=== PATIENT | female | born 1960 | race Caucasian/White ===

== ENCOUNTER 2020-02-14 17:05 | Outpatient (CLI) | payer OTHER, SELFPAY ==
--- NOTE | ~2020-02-14 | MM_ITS ---
EXAMINATION: MM screening [place] BI w [facility] HISTORY: Screening mammogram TECHNIQUE: Craniocaudal and mediolateral oblique 3-D tomosynthesis images were obtained and synthetic 2-D images were generated. CAD analysis was submitted and interpreted. COMPARISON: 02/26/2015, 01/28/2015, 01/23/2014 BREAST PARENCHYMAL COMPOSITION: The breasts are heterogeneously dense, which may obscure small masses . FINDINGS: RIGHT BREAST: Focal asymmetry is present in the posterior third of the slightly lower, slightly inner breast. LEFT BREAST: There is no evidence of suspicious mass, calcification, or architectural distortion to s uggest malignancy. There has been no significant interval change. IMPRESSION: 1. Focal asymmetry of the right breast. 2. Additional mammographic views and possible breast ultrasound are recommended. BI-RADS Category 0: Incomplete: Needs additional imaging evaluation. Reviewed, dictated and finalized at location A. IMPRESSION: 1. Focal asymmetry of the right breast. 2. Additional mammographic views and possible breast ultrasound are recommended . BI-RADS Category 0: Incomplete: Needs additional imaging evaluation.
== END 2020-02-14 17:06 | disposition home or self-care (01) ==
LOC: ANHIMG 17:07
PROVIDERS: PCP Family Medicine; Visit Provider Physician Assistant Medical
DX: Z12.31 Encounter for screening mammogram for malignant neoplasm of breast (principal); R92.8 Other abnormal and inconclusive findings on diagnostic imaging of breast
CPT/HCPCS: 77063; 77067

== ENCOUNTER 2020-03-11 11:53 | Outpatient (CLI) | payer OTHER, SELFPAY ==
--- NOTE | ~2020-03-11 | MM_ITS ---
EXAMINATION: MM diagnostic mammo unilat RT HISTORY: Focal asymmetry of the right breast on screening mammogram TECHNIQUE: Additional 3-D tomosynthesis images of the right breast were performed and synthetic 2-D i mages were generated. CAD analysis was submitted and interpreted. COMPARISON: 02/14/2020, 01/25/2019,01/28/2015, 01/23/2014 FINDINGS: No persistent focal asymmetry is identified with spot compression views of the breast. Ther e is no suspicious mass, calcification, or architectural distortion. IMPRESSION: 1. No mammographic evidence of malignancy. 2. Recommend routine screening mammography in one year. BI-RADS Category 1: Negative Reviewed, dictated and finalized at location A.
== END 2020-03-11 11:54 | disposition home or self-care (01) ==
PROVIDERS: PCP Family Medicine; Visit Provider Physician Assistant Medical
DX: R92.8 Other abnormal and inconclusive findings on diagnostic imaging of breast (principal)
CPT/HCPCS: 77065

== ENCOUNTER 2021-04-03 00:33 | Day surgery (SDC) | payer OTHER, SELFPAY ==
[2021-03-18 14:06] VITALS: BMI 22.4
[2021-04-03 07:46] VITALS: BP 129/70; PULSE 69; RESP 18; TEMP 36.8; O2SAT 100; BMI 22.1
--- NOTE | 2021-04-03 07:55 | WPDGICN ---
Assessment and Plan Assessment and plan (1) Encounter for screening colonoscopy: Code(s): Z12.11 - Encounter for screening for malignant neoplasm of colon Status: Acute Assessment and Plan: Patient presents for screening colonoscopy. Her last exam was 10 years ago. Family history is significant her father had colon polyps and an uncle had colon cancer. Further recommendations will be given after endoscopy. GI Consult Note Consult date/time: 04/03/21 07:55 HPI: Daly Farley is a 60 year old female Presents for screening colonoscopy. Patient's current weight appetite bowel movements are normal. She denies abdominal pain. She has had no bleeding. Her last colonoscopy 2010 was unremarkable. Patient's family history is significant an uncle had colon cancer and her father had colon polyps. Patient herself denies any change in bowel habits recently. Review of Systems Review of Systems: All systems reviewed & are unremarkable except as noted in HPI and below PMFSH Past Medical History Medical History Osteopenia Seborrheic keratoses, inflamed Surgical History Surgical History S/P appendectomy (~1981) S/P endometrial ablation (~2012) S/P tubal ligation (~1989) Family History Family History Father Family history of mental disorder Depression Mother Family history of glaucoma Hypertension Family history of elevated blood lipids Family history of cardiovascular disease Patient's mother is Family history of malignant neoplasm Sibling Family history of malignant neoplasm Hypertension Family history of elevated blood lipids Other Diabetes mellitus Family history of hypercholesterolemia Social History Social History Smoking status: Never smoker Second hand tobacco smoke exposure: No Alcohol intake: current Substance use type: does not use Living arrangements: with family Meds Home Medications and Allergies Home Medications Medication Instructions Recorded Confirmed Type multivitamin 1 tablet PO DAILY 04/11/19 04/03/21 History alprazolam 0.25 mg tablet 0.25 mg PO TID PRN #30 tablet 01/14/21 04/03/21 Rx Allergies Allergy/AdvReac Type Severity Reaction Status Date / Time duloxetine Allergy Unknown Nausea Verified 03/18/21 14:03 risedronate sodium Allergy Unknown Nausea Verified 03/18/21 14:03 Sulfa (Sulfonamide Allergy Unknown not known Verified 03/18/21 14:03 Antibiotics) Vital Signs Vital Signs - 24 hr 04/03/21 07:46 Temperature 98.2 F Pulse Rate 69 Respiratory Rate 18 Blood Pressure 129/70 Pulse Oximetry 100 Exam Narrative: Physical exam reveals patient to be alert. Vital signs stable. HEENT exam is unremarkable. Patient is anicteric. Lungs are clear to auscultation and percussion. Heart is without murmur or extra sounds. Abdominal exam bowel sounds are present soft nontender with no organomegaly. Digital external rectal exam is normal.
--- NOTE | 2021-04-03 08:01 | WPDANESEPPF ---
Anes - Initial Pre Proc Eval Procedure: Operation Date: 04/03/21 08:30 Proposed Procedures p Screening Colonoscopy - Zane Martins MD Date/Time: 04/03/21 08:01 Surgeon: Zane Martins MD Pre Op Diagnosis: neoplasm screening Patient Data Age: 60 Gender: F Height: 1.7 m Weight: 64 kg Last Vital Signs Temp 98.2 F 04/03/21 07:46 Pulse 69 04/03/21 07:46 Resp 18 04/03/21 07:46 BP 129/70 04/03/21 07:46 Pulse Ox 100 04/03/21 07:46 Allergies Allergy/AdvReac Type Severity Reaction Status Date / Time duloxetine Allergy Unknown Nausea Verified 03/18/21 14:03 risedronate sodium Allergy Unknown Nausea Verified 03/18/21 14:03 Sulfa (Sulfonamide Allergy Unknown not known Verified 03/18/21 14:03 Antibiotics) Home Medications Medication Instructions Recorded Confirmed Type multivitamin 1 tablet PO DAILY 04/11/19 04/03/21 History alprazolam 0.25 mg tablet 0.25 mg PO TID PRN #30 tablet 01/14/21 04/03/21 Rx Patient hx anesthesia problems: none Family hx anesthesia problems: none Results Review: All pre-operative results and documents have been reviewed as part of the pre-operative evaluation. [facility] Past Medical History Medical History Osteopenia Seborrheic keratoses, inflamed Surgical History Surgical History S/P appendectomy (~1981) S/P endometrial ablation (~2012) S/P tubal ligation (~1989) Family History Family History Father Family history of mental disorder Depression Mother Family history of glaucoma Hypertension Family history of elevated blood lipids Family history of cardiovascular disease Patient's mother is Family history of malignant neoplasm Sibling Family history of malignant neoplasm Hypertension Family history of elevated blood lipids Other Diabetes mellitus Family history of hypercholesterolemia Social History Social History Smoking status: Never smoker Second hand tobacco smoke exposure: No Alcohol intake: current Substance use type: does not use Living arrangements: with family Sam Arciniega Final PreProcedure Day of Procedure 04/03/21 08:01 Patient weight: normal Heart: regular rate and rhythm Lungs: clear to auscultation Airway: Mallampati scale class II Neurological: alert and oriented Last oral intake: >/= 8 hours ASA classification: II Emergent: no Anesthetic plan: proceed Anesthesia type and monitoring: general GIVS and standard monitoring Results Review: All pre-operative results and documents have been reviewed as part of the pre-operative evaluation. Informed Consent: The patient's anesthetic plan and its attendant risks and benefits were discussed with the patient/family/POA. Questions were solicited and answers provided to the satisfaction of the patient/family/POA.
[2021-04-03] MEDS: LACTATED RINGERS 1,000 ML 150 ML IV CONT (08:04)
[2021-04-03 08:48] VITALS: BP 116/65; PULSE 79; RESP 22; O2SAT 100
[2021-04-03 08:58] VITALS: BP 121/70; PULSE 75; RESP 16; O2SAT 100
[2021-04-03 09:08] VITALS: BP 132/83; PULSE 67; RESP 16; O2SAT 100
== END 2021-04-03 09:18 | disposition home or self-care (01) ==
PROVIDERS: PCP Family Medicine; Visit Provider Internal Medicine Gastroenterology
PROC: 0DJD8ZZ Inspection of Lower Intestinal Tract, Via Natural or Artificial Opening Endoscopic (ICD-10-PCS; CPT 45378; principal; 2021-04-03 08:30)
DX: Z12.11 Encounter for screening for malignant neoplasm of colon (principal); Z83.71 Family history of colonic polyps; K64.8 Other hemorrhoids; K57.30 Diverticulosis of large intestine without perforation or abscess without bleeding; M19.90 Unspecified osteoarthritis, unspecified site; L82.1 Other seborrheic keratosis
CPT/HCPCS: 45378; J2704; J7120

== ENCOUNTER 2023-02-10 12:57 | Outpatient (CLI) | payer OTHER, SELFPAY | END 2023-02-10 12:58 | disposition home or self-care (01) | PROVIDERS: PCP Family Medicine; Visit Provider Urology | DX: N36.42 Intrinsic sphincter deficiency (ISD) (principal) | CPT/HCPCS: 87086 ==

== ENCOUNTER 2023-02-18 00:30 | Day surgery (SDC) | payer OTHER, SELFPAY ==
[2023-02-08 11:45] VITALS: BMI 22.5
--- NOTE | 2023-02-08 11:51 | PC.NURSE ---
Report to the Outpatient Waiting Room, entrance under the green pavilion located off [facility], at time 9:00 on date 02/18/23. Planned Procedure Time: 11:00. Time changes happen often and if your time is changed the preop area will call you the afternoon before. - You and your visitor will be asked to self-screen and do not enter if you have any COVID symptoms. - A mask is optional within the hospital at this time. Patients may have clear liquids (water, carbonated beverages, clear teas, apple juice) until 3 hours prior to surgery (8:00) with a maximum of 20 ounces. - No food from midnight until time of surgery Take the following medications with a SIP of water the morning of surgery: INHALER, ALPRAZOLAM, VALACYCLOVIR IF NEEDED DO NOT STOP ANY OF YOUR OTHER PRESCRIPTION MEDICATIONS PRIOR TO SURGERY ?EXCEPT THE FOLLOWING Medications to discontinue per physician: VITAMINS/SUPPLEMENTS Date to take last dose: 02/14/23 Please no make-up, nail swedish, hairspray, perfume, deodorant, or body powder the day of surgery. No jewelry (including any body piercings) or valuables the day of surgery, leave them at home. Please take a shower or bath the night before, or the morning of, surgery with an antibacterial soap. Wear comfortable, loose fitting clothing. - Jewelry must be removed prior to entering the operating room. Rings and piercings that are not removed may be cut off. - The hospital will not accept responsibility for valuables. - Please leave all valuables, including medications, at home the day of surgery. If you are going home after surgery, a licensed coach driver must drive you home. - NO public transportation without another adult if you receive anesthesia. - We recommend that an adult stay with you for 24 hours following discharge. - We also recommend that you do not drive, make important decision, drink alcoholic beverages, or take any drugs that were not prescribed by your health care provider for at least 24 hours after your discharge time. Follow any additional instructions given to you from your surgeon. If you or anyone in your household have experienced Covid symptoms in the past week, please notify your surgeon or the nurse liaison at the phone number below for possible testing. Telephone instructions given to PT - THOM MORENO and asked if any additional questions and then verbalized understanding. Patient advised to call surgeon office or pre surgery nurse liaison [phone] if any additional questions.
--- NOTE | 2023-02-17 04:56 | PM.IMHP ---
H&P: HPI History of Present Illness Date/Time: 02/17/23 04:56 Chief Complaint: stress incontinence Narrative: stress urinary incontinence. She desires a surgical procedure Review of Systems Review of Systems: All systems reviewed & are unremarkable except as noted in HPI and below PMFSH Past Medical History Medical History Ocular migraine Osteopenia Seborrheic keratoses, inflamed Tension headache Surgical History Surgical History S/P appendectomy (~1981) S/P endometrial ablation (~2012) S/P tubal ligation (~1989) Family History Family History Father Family history of mental disorder Depression Mother Family history of glaucoma Hypertension Family history of elevated blood lipids Family history of cardiovascular disease Patient's mother is Family history of malignant neoplasm Sibling Family history of malignant neoplasm Hypertension Family history of elevated blood lipids Other Diabetes mellitus Family history of hypercholesterolemia Social History Social History Smoking status: Never smoker Second hand tobacco smoke exposure: No Alcohol intake: current Drinks per week: 1 Substance use: never Substance use type: does not use Living arrangements: with family Spiritual care concerns: No Meds Home Medications and Allergies Home Medications Medication Instructions Recorded Confirmed Type multivitamin 1 tablet PO DAILY 04/11/19 02/11/23 History cholecalciferol (vitamin D3) 125 125 mcg PO DAILY 02/08/23 02/11/23 History mcg (5,000 unit) tablet (Vitamin D3) lysine 1,000 mg tablet 1,000 mg PO DAILY 02/08/23 02/11/23 History albuterol sulfate 90 mcg/actuation 2 inh inhalation Q4H PRN shortness 02/11/23 02/11/23 Rx aerosol inhaler of breath or wheezing #8.5 grams alprazolam 0.25 mg tablet (Xanax) 0.25 mg PO TID PRN anxiety #30 tabs 02/11/23 02/11/23 Rx valacyclovir 1 gram tablet 2,000 mg PO Q12H #32 tabs 02/11/23 02/11/23 Rx (Valtrex) Allergies Allergy/AdvReac Type Severity Reaction Status Date / Time amitriptyline Allergy Mild vision Verified 02/11/23 15:14 duloxetine Allergy Unknown Nausea Verified 02/11/23 15:14 risedronate sodium Allergy Unknown Nausea Verified 02/11/23 15:14 Sulfa (Sulfonamide Allergy Unknown not known Verified 02/11/23 15:14 Antibiotics) Exam Narrative: no acute distress alert oriented x3 no significant pelvic organ prolapse Assessment and Plan Assessment and plan (1) Intrinsic sphincter deficiency (ISD): Code(s): N36.42 - Intrinsic sphincter deficiency (ISD) Status: Acute Assessment and Plan: I offered both sling and bulking agent. She prefers less invasive bulking agent. She understands the risks of bleeding, infection, damage surrounding organs, damage to the urinary tract, recurrent or persistent incontinence, need for catheterization. Need for repeat procedures. She agrees to proceed
[2023-02-18 07:17] VITALS: BP 138/70; PULSE 69; RESP 20; TEMP 36.5; O2SAT 100
--- NOTE | 2023-02-18 07:18 | WPDHPUPDATE1 ---
History and Physical Update Update Date/Time: 02/18/23 07:18 History and Physical has been reviewed, including an updated exam of the patient. There are NO changes in the patient's condition. Risks, benefits, and alternatives have been discussed and questions answered. Patient agrees to proceed with procedure.
[2023-02-18] MEDS: LACTATED RINGERS 1,000 ML 30 ML IV CONT (08:00)
--- NOTE | 2023-02-18 08:40 | WPDANESEPPF ---
Anes - Initial Pre Proc Eval Procedure: Operation Date: 02/18/23 09:00 Proposed Procedures p Cystoscopy, Bulking Agent - Gerry Hernandez MD Date/Time: 02/18/23 08:40 Surgeon: Gerry Hernandez MD Pre Op Diagnosis: intrinsic sphincter deficiency Patient Data Age: 62 Gender: F Height: 1.73 m Weight: 66.1 kg Last Vital Signs Temp 97.7 F 02/18/23 07:17 Pulse 69 02/18/23 07:17 Resp 20 02/18/23 07:17 BP 138/70 02/18/23 07:17 Pulse Ox 100 02/18/23 07:17 O2 Del Method Room Air 02/18/23 07:17 Allergies Allergy/AdvReac Type Severity Reaction Status Date / Time Sulfa (Sulfonamide Allergy Unknown Hives Verified 02/18/23 07:48 Antibiotics) amitriptyline AdvReac Mild Blurry Verified 02/18/23 07:48 Vision duloxetine AdvReac Unknown Nausea Verified 02/18/23 07:48 risedronate sodium AdvReac Unknown Nausea Verified 02/18/23 07:48 Home Medications Medication Instructions Recorded Confirmed Type multivitamin 1 tablet PO DAILY 04/11/19 02/18/23 History cholecalciferol (vitamin D3) 125 125 mcg PO DAILY 02/08/23 02/18/23 History mcg (5,000 unit) tablet (Vitamin D3) lysine 1,000 mg tablet 1,000 mg PO DAILY 02/08/23 02/18/23 History albuterol sulfate 90 mcg/actuation 2 inh inhalation Q4H PRN shortness 02/11/23 02/18/23 Rx aerosol inhaler of breath or wheezing #8.5 grams alprazolam 0.25 mg tablet (Xanax) 0.25 mg PO TID PRN anxiety #30 tabs 02/11/23 02/18/23 Rx valacyclovir 1 gram tablet 2,000 mg PO Q12H #32 tabs 02/11/23 02/18/23 Rx (Valtrex) calcium 1 tablet PO DAILY 02/18/23 02/18/23 History carbonate,citrate-magnesium oxide 200 mg calcium-50 mg tablet (CalMag Thins) norethindrone acetate 1 mg-ethinyl 1 tablet PO DAILY 02/18/23 02/18/23 History estradiol 5 mcg tablet omega-3 fatty acids 1,000 mg PO DAILY 02/18/23 02/18/23 History Patient hx anesthesia problems: none Family hx anesthesia problems: none Results Review: All pre-operative results and documents have been reviewed as part of the pre-operative evaluation. [facility] Past Medical History Medical History Ocular migraine Osteopenia Seborrheic keratoses, inflamed Tension headache Surgical History Surgical History S/P appendectomy (~1981) S/P endometrial ablation (~2012) S/P tubal ligation (~1989) Family History Family History Father Family history of mental disorder Depression Mother Family history of glaucoma Hypertension Family history of elevated blood lipids Family history of cardiovascular disease Patient's mother is Family history of malignant neoplasm Sibling Family history of malignant neoplasm Hypertension Family history of elevated blood lipids Other Diabetes mellitus Family history of hypercholesterolemia Social History Social History Smoking status: Never smoker Second hand tobacco smoke exposure: No Alcohol intake: current Drinks per week: 1 Substance use: never Substance use type: does not use Living arrangements: with family Spiritual care concerns: No Anes - Eval Final PreProcedure Day of Procedure 02/18/23 08:40 Patient weight: normal Heart: regular rate and rhythm Lungs: clear to auscultation Airway: Mallampati scale class II Neurological: alert and oriented Last oral intake: >/= 8 hours ASA classification: II Emergent: no Anesthetic plan: proceed Anesthesia type and monitoring: general GIVS and standard monitoring Results Review: All pre-operative results and documents have been reviewed as part of the pre-operative evaluation. Informed Consent: The patient's anesthetic plan and its attendant risks and benefits were discussed with the patient/family/POA. Questions were solicited and answer
[2023-02-18] MEDS: ceFAZolin 2 GM/D5W 50 ML 2 GM/50 ML BAG IVPB (09:07)
[2023-02-18 09:27] VITALS: BP 127/74; PULSE 70; RESP 12; O2SAT 100
--- NOTE | 2023-02-18 09:31 | P.OP_ITS ---
Procedure Note - Detailed Date of Procedure 02/18/23 Pre-op Diagnosis intrinsic sphincter deficiency Post-op Diagnosis Same Procedure Performed Cystoscopy suburethral injection of implant material Surgeon Gerry Hernandez MD Client [employer] Analyst None Anesthesia MAC Indications This is a was stress incontinence. We discussed treatment options including observation, physical therapy, sling, bulking agent. She has opted for a bulking agent. She understands it is lower efficacy as compared to a sling and its need for repeat procedures. We also discussed the risks of urinary tension requiring catheterization. She agrees to proceed Description of Procedure She has correctly identified. Informed consent obtained. She from the operating room. She was given MAC anesthesia. She was placed in dorsal lithotomy position. She was prepped and draped in a sterile fashion. Time-out performed. Cystoscopy revealed a normal appearing bladder without abnormalities. Ureteral orifices were normal. I chose a site 2 cm distal the bladder neck. I injecting bulking agent circumferentially. I performed several pillows which coapted the urethra. Her bladder had no leakage on Crede a maneuver. There was excellent hemostasis. I left the bladder partially full. She was awakened transferred to PACU in stable condition. Estimated Blood Loss 0 Drains No Packing No Pathology None sent Complications No immediate complications Condition Stable Disposition PACU
[2023-02-18 09:40] VITALS: BP 126/82; PULSE 71; RESP 14; O2SAT 99
[2023-02-18] MEDS: ONDANSETRON INJ 4 MG/2 ML VIAL IV PUSH (09:46)
[2023-02-18 10:05] VITALS: BP 144/70; PULSE 62; RESP 16; O2SAT 100
[2023-02-18 10:20] VITALS: BP 145/76; PULSE 64; RESP 16; O2SAT 100
[2023-02-18 10:30] VITALS: BP 146/78; PULSE 64; RESP 16
== END 2023-02-18 10:52 | disposition home or self-care (01) ==
PROVIDERS: PCP Family Medicine; Visit Provider Urology
PROC: 3E0K8GC Introduction of Other Therapeutic Substance into Genitourinary Tract, Via Natural or Artificial Opening Endoscopic (ICD-10-PCS; CPT 51715; principal; 2023-02-18 09:00)
DX: N36.42 Intrinsic sphincter deficiency (ISD) (principal); Z79.51 Long term (current) use of inhaled steroids
CPT/HCPCS: 51715; J0690; J2250; J2405; J2704; J3010; J7120; L8606

== ENCOUNTER 2023-03-18 09:17 | Outpatient (CLI) | payer OTHER, SELFPAY ==
--- NOTE | ~2023-03-18 | MMUS_ITS ---
EXAMINATION: MM diagnostic [place] RT w [place], US breast RT limited HISTORY: Possible right breast mass TECHNIQUE: Additional 3-D tomosynthesis images of the right breast were performed and synthetic 2-D i mages were generated. CAD analysis was submitted and interpreted. High resolution limited right breas t ultrasound was performed. COMPARISON: 02/02/2023, 02/10/2022, 02/20/2020, 02/14/2020 BREAST PARENCHYMAL COMPOSITION: The breasts are heterogeneously dense, which may obscure small masses . FINDINGS: MAMMOGRAPHIC FINDINGS: There is an 8 mm, obscured, low density mass in the posterior third of the outer breast at the 9:00 l ocation, 4 cm from the nipple. No suspicious calcification or architectural distortion are identified . ULTRASOUND: There is a 10 mm x 5 mm cyst at the 9:00 location 1 cm from the nipple. There is a 5 mm round cyst at the 10:00 location, 3 cm from the nipple. IMPRESSION: 1. No mammographic or sonographic evidence of malignancy. 2. Recommend routine screening mammography in one year. BI-RADS Category 2: Benign finding(s). Reviewed, dictated and finalized at location A. IMPRESSION: 1. No mammographic or sonographic evidence of malignancy. 2. Recommend routine screening mammography in one year. BI-RADS Category 2: Benign finding(s).
== END 2023-03-18 09:18 | disposition home or self-care (01) ==
PROVIDERS: PCP Family Medicine; Visit Provider Obstetrics & Gynecology
DX: R92.8 Other abnormal and inconclusive findings on diagnostic imaging of breast (principal)
CPT/HCPCS: 76642; 77061; 77065; G0279

== ENCOUNTER 2023-05-13 08:28 | Outpatient (CLI) | payer OTHER, SELFPAY ==
--- NOTE | ~2023-05-13 | CT_ITS ---
EXAMINATION: CT abdomen pelvis wo/w con DATE: 05/13/2023 09:32 INDICATION: Intrinsic sphincter deficiency, hematuria TECHNIQUE: Computed tomography (CT) of the abdomen and pelvis was performed without intravenous contr ast. CT of the abdomen and pelvis was then performed with a total of 130 mL Omnipaque 350 intravenous contrast using a double-bolus technique for simultaneous opacification of the renal parenchyma and r enal collecting system. The dose-length product (DLP) was 675.99 mGy-cm. Automated exposure control a nd iterative reconstruction technique were employed. COMPARISON: 11/07/2014 FINDINGS: Minimal dependent atelectasis is present in the lung bases. The heart size is normal. There is a 3 mm cyst of the right hepatic lobe. Punctate calcifications in an otherwise normal spleen like ly represent healed granulomatous disease. No suspicious renal or urothelial lesion identified. The k idneys are unremarkable. No hydronephrosis or hydroureter. No pathologically enlarged abdominal or pe lvic lymph nodes are identified. No free intraperitoneal gas or evidence of bowel obstruction. There is severe lumbar spondylosis at L5-S1. IMPRESSION: 1. No CT correlate for the patient's symptoms. Reviewed, dictated and finalized at location B. [employer] SUPPORT CONSULTANT
[2023-05-13 09:12] LABS: Estimated Glomerular Filt Rate > 60
== END 2023-05-13 08:29 | disposition home or self-care (01) ==
LOC: ANHIMG 08:29
PROVIDERS: PCP Family Medicine; Visit Provider Physician Assistant
DX: N36.42 Intrinsic sphincter deficiency (ISD) (principal)
CPT/HCPCS: 74178; Q9967

== ENCOUNTER 2023-10-16 08:59 | Emergency (ER) | payer OTHER, SELFPAY ==
[2023-10-16 09:26] VITALS: BP 127/90; PULSE 67; RESP 16; TEMP 37.1; O2SAT 100
--- NOTE | 2023-10-16 09:32 | ED.GENADULT ---
HPI - General Adult General Chief complaint: Upper Respiratory Infection Stated complaint: SINUS CONGESTION Time Seen by Provider: 10/16/23 09:33 Source: patient Mode of arrival: ambulatory Limitations: no limitations History of Present Illness HPI narrative: 63-year-old female patient presents to the [facility] with complaints of sinus congestion and cough for the past 11 days. Patient states it started off with fevers, body aches chills and cold symptoms but most of her symptoms have subsided and improved except for she continues to have some postnasal drip, congestion and a cough. Patient states her cough is worse at night. Denies any fevers body aches or chills currently. Patient states she has been taking [id number] Xyzal, Mucinex, Tylenol for her symptoms. Patient states she does have an albuterol inhaler at home but has not tried that at this time. Related Data Home Medications Medication Instructions Recorded Confirmed multivitamin 1 tablet PO DAILY 04/11/19 02/18/23 cholecalciferol (vitamin D3) 125 125 mcg PO DAILY 02/08/23 02/18/23 mcg (5,000 unit) tablet (Vitamin D3) lysine 1,000 mg tablet 1,000 mg PO DAILY 02/08/23 02/18/23 calcium 1 tablet PO DAILY 02/18/23 02/18/23 carbonate,citrate-magnesium oxide 200 mg calcium-50 mg tablet (CalMag Thins) norethindrone acetate 1 mg-ethinyl 1 tablet PO DAILY 02/18/23 02/18/23 estradiol 5 mcg tablet omega-3 fatty acids 1,000 mg PO DAILY 02/18/23 02/18/23 quercetin 500 mg capsule mg PO 05/12/23 Allergies Allergy/AdvReac Type Severity Reaction Status Date / Time Sulfa (Sulfonamide Allergy Unknown Hives Verified 10/16/23 09:22 Antibiotics) amitriptyline AdvReac Mild Blurry Verified 10/16/23 09:22 Vision duloxetine AdvReac Unknown Nausea Verified 10/16/23 09:22 risedronate sodium AdvReac Unknown Nausea Verified 10/16/23 09:22 Review of Systems Review of Systems: CONSTITUTIONAL: Denies fever, chills, or sweats. EYES: Denies visual changes, redness, or discharge. ENT: Positive rhinorrhea, congestion, denies sore throat, or otalgia. CARDIOVASCULAR: Denies chest pain, palpitations, or edema. RESPIRATORY: positive productive cough , denies dyspnea. GASTROINTESTINAL: Denies abdominal pain, nausea, vomiting, or diarrhea. GENITOURINARY: Denies dysuria or hematuria. SKIN: Denies rash or itching. MUSCULOSKELETAL: Denies back pain, joint pain, or myalgia. NEUROLOGIC: Denies headache, numbness, or weakness. PSYCHIATRIC: Denies anxiety or depression. [facility] Past Medical History Medical History Abdominal adhesions Ocular migraine Osteopenia Seborrheic keratoses, inflamed Tension headache Surgical History Surgical History History of injection of urethral bulking agent S/P appendectomy (~1981) S/P endometrial ablation (~2012) S/P tubal ligation (~1989) Family History Family History Father Family history of mental disorder Depression Mother Family history of glaucoma Hypertension Family history of elevated blood lipids Family history of cardiovascular disease Patient's mother is Family history of malignant neoplasm Sibling Family history of malignant neoplasm Hypertension Family history of elevated blood lipids Other Diabetes mellitus Family history of hypercholesterolemia Social History Social History Smoking status: Never smoker Second hand tobacco smoke exposure: No Alcohol intake: current Drinks per week: 1 Substance use: never Substance use type: does not use Living arrangements: with family Spiritual care concerns: No Comments At the time of my signature I agree with nursing past medical history, surgical, social, and family history. There is no relevant family h
== END 2023-10-16 09:46 | disposition home or self-care (01) ==
PROVIDERS: Emergency Provider Nurse Practitioner Family; PCP Family Medicine
DX: J32.9 Chronic sinusitis, unspecified (principal); J06.9 Acute upper respiratory infection, unspecified; R05.9 Cough, unspecified; M85.80 Other specified disorders of bone density and structure, unspecified site
CPT/HCPCS: 99213; G0463

== ENCOUNTER 2024-02-18 07:27 | Outpatient (CLI) | payer OTHER, SELFPAY ==
--- NOTE | ~2024-02-18 | MM_ITS ---
EXAMINATION: MM screening [place] [facility] HISTORY: Screening. Exogenous hormone replacement. Remote family history of breast cancer. TECHNIQUE: Craniocaudal and mediolateral oblique 3-D tomosynthesis images were obtained and synthetic 2-D images were generated. CAD analysis was submitted and interpreted. COMPARISON: Examination is compared with multiple prior studies, performed most recently on 03/18/2023 and dating back to 01/24/2013. Reference is also made with prior breast ultrasound dated 03/18/2023 and dating back to 02/16/2013 BREAST PARENCHYMAL COMPOSITION: The breasts are heterogeneously dense, which may obscure small masses . FINDINGS: Punctate calcifications are detected bilaterally, stable and benign in appearance. Stable parenchymal pattern, without suspicious microcalcifications, architectural distortion, discret e masses or significant asymmetry. Multiple simple cysts accounting for the subtle nodular appearance on mammography as demonstrated by prior ultrasound examinations. IMPRESSION: 1. No mammographic evidence of malignancy. 2. Recommend routine screening mammography in one year. BI-RADS Category 2: Benign finding(s). Reviewed, dictated and finalized at location A.
== END 2024-02-18 07:28 | disposition home or self-care (01) ==
LOC: ANHIMG 07:29
PROVIDERS: PCP Family Medicine; Visit Provider Obstetrics & Gynecology
DX: Z12.31 Encounter for screening mammogram for malignant neoplasm of breast (principal)
CPT/HCPCS: 77063; 77067

== ENCOUNTER 2024-06-24 08:25 | Emergency (ER) | payer OTHER, SELFPAY ==
[2024-06-24 09:02] VITALS: BP 119/77; PULSE 66; RESP 16; TEMP 36.4; O2SAT 100
--- NOTE | 2024-06-24 09:19 | ED.GENADULT ---
HPI - General Adult General Chief complaint: Upper Respiratory Infection Stated complaint: COUGH/CONGESTION/CHEST/WEAKNESS/TIRED Time Seen by Provider: 06/24/24 09:19 Source: patient Mode of arrival: ambulatory Limitations: no limitations History of Present Illness HPI narrative: 63-year-old female patient presents to the [facility] accompanied by her with complaints of flu-like symptoms for the past 5 days. Patient states she has had a cough and high fevers. Patient states fevers are getting better and last time she room brain fever was yesterday and it was 100.4. Patient states she continues to have a cough and concerns that it is turning into bronchitis. Related Data Home Medications ?Medication ?Instructions ?Recorded ?Confirmed ?Last Taken ?Type multivitamin 1 tablet PO DAILY 04/11/19 02/16/24 02/14/23 History cholecalciferol (vitamin D3) 125 125 mcg PO DAILY 02/08/23 02/16/24 02/14/23 History mcg (5,000 unit) tablet (Vitamin D3) lysine 1,000 mg tablet 1,000 mg PO DAILY 02/08/23 02/16/24 02/14/23 History calcium 200 mg (carbonate, 1 tablet PO DAILY 02/18/23 02/16/24 02/14/23 History citrate)-magnesium 50 mg (as oxide) tablet (CalMag Thins) norethindrone acetate 1 mg-ethinyl 1 tablet PO DAILY 02/18/23 02/16/24 02/14/23 History estradiol 5 mcg tablet omega-3 fatty acids 1,000 mg PO DAILY 02/18/23 02/16/24 02/14/23 History quercetin 500 mg capsule 500 mg PO DAILY 05/12/23 02/16/24 Unknown History Allergies Allergy/AdvReac Type Severity Reaction Status Date / Time Sulfa (Sulfonamide Allergy Unknown Hives Verified 02/16/24 14:53 Antibiotics) amitriptyline AdvReac Mild Blurry Verified 02/16/24 14:53 Vision duloxetine AdvReac Unknown Nausea Verified 02/16/24 14:53 risedronate sodium AdvReac Unknown Nausea Verified 02/16/24 14:53 Review of Systems Review of Systems: CONSTITUTIONAL: Positive fever, chills, denies sweats. EYES: Denies visual changes, redness, or discharge. ENT: Denies rhinorrhea, congestion, sore throat, or otalgia. CARDIOVASCULAR: Denies chest pain, palpitations, or edema. RESPIRATORY: positive cough denies dyspnea. GASTROINTESTINAL: Denies abdominal pain, nausea, vomiting, or diarrhea. GENITOURINARY: Denies dysuria or hematuria. SKIN: Denies rash or itching. MUSCULOSKELETAL: Denies back pain, joint pain, or myalgia. NEUROLOGIC: positive headache, denies numbness, or weakness. PSYCHIATRIC: Denies anxiety or depression. [facility] Past Medical History Medical History Abdominal adhesions Tension headache Ocular migraine Headache Osteopenia Seborrheic keratoses, inflamed Surgical History Surgical History History of injection of urethral bulking agent S/P tubal ligation (~1989) S/P endometrial ablation (~2012) S/P appendectomy (~1981) Family History Family History Father Family history of mental disorder Depression Mother Family history of glaucoma Hypertension Family history of elevated blood lipids Family history of cardiovascular disease Patient's mother is Family history of malignant neoplasm Sibling Family history of malignant neoplasm Hypertension Family history of elevated blood lipids Other Diabetes mellitus Family history of hypercholesterolemia Social History Social History Social History: Caffeine-coffee daily Smoking status: Never smoker Second hand tobacco smoke exposure: No Alcohol intake: current Drinks per week: 1 Substance use: never Substance use type: does not use Living arrangements: with family Spiritual care concerns: No Comments At the time of my signature I agree with nursing past medical history, surgical, social, and family history. There is no relevant family history pertinent to the presenting complaint. Exam Narrative: GENERAL: Well-appearing, well-nourished, and in no acute distress. HEAD: Normocephalic, atraumatic. EYES: PERRLA and EOMI. ENT: Nares c with erythema edema noted bilaterally, no rhinorrhea or epistaxis. Mucous membranes moist. NECK: Supple. No lymphadenopathy CHEST: Clear to auscultation. No respiratory distress. HEART: Regular rate and rhythm. No murmur heard. Normal peripheral pulses. ABDOMEN: Soft, nontender, nondistended, normal active bowel sounds. EXTREMITIES: Normal range of motion. No edema. SKIN: Warm, dry, no rash. NEURO: No focal deficits. Alert and oriented x3. Course Course Level of Care: Express Care Visit Vital Signs Vital signs: Vital Signs Temperature 36.4 C L 06/24/24 09:02 Pulse Rate 66 06/24/24 09:02 Respiratory Rate 16 06/24/24 09:02 Blood Pressure 119/77 06/24/24 09:02 Pulse Oximetry 100 06/24/24 09:02 Temperature 36.4 C L 06/24/24 09:02 Pulse Rate 66 06/24/24 09:02 Respiratory Rate 16 06/24/24 09:02 Blood Pressure 119/77 06/24/24 09:02 Pulse Oximetry 100 06/24/24 09:02 Vital signs reviewed. Medical Decision Making MDM Narrative Medical decision making narrative: discussed with patient she is positive today for influenza A. Discussed with her that since she has had symptoms already for 5 days most likely a she is on the back end of it and will start getting better in the next couple of days. Encouraged patient to continue taking Tylenol and ibuprofen as needed for body aches and fevers. Patient is past the point that we can give Tamiflu. Discussed with patient lots of fluids deep breathing exercises to prevent pneumonia and I will also prescribe some Tessalon Perles to help with the coughing. Patient verbalized understanding denies any other questions or concerns at this time. Differential Diagnosis Differential Diagnosis: Differential diagnosis: Allergic rhinitis, chronic sinusitis, tonsillitis, acute sinusitis, infectious mononucleosis, seasonal influenza, pertussis, diphtheria, meningococcal disease, viral syndrome, viral bronchitis, RSV, COVID-19 Vital Signs Vital Signs: Vital Signs Temperature 36.4 C L 06/24/24 09:02 Pulse Rate 66 06/24/24 09:02 Respiratory Rate 16 06/24/24 09:02 Blood Pressure 119/77 06/24/24 09:02 Pulse Oximetry 100 06/24/24 09:02 Temperature 36.4 C L 06/24/24 09:02 Pulse Rate 66 06/24/24 09:02 Respiratory Rate 16 06/24/24 09:02 Blood Pressure 119/77 06/24/24 09:02 Pulse Oximetry 100 06/24/24 09:02 Critical Care Time Critical Care Time Critical Care Time: No Discharge Plan Discharge Clinical Impression: Influenza A Patient Disposition: Home, Self-Care Condition: Stable Instructions: Antibiotic Form, Influenza (ED) Additional Instructions: Influenza (the flu) is an infection caused by the influenza virus. The flu is easily spread when an infected person coughs, sneezes, or has close contact with others. You may be able to spread the flu to others for 1 week or longer after signs or symptoms appear. DISCHARGE INSTRUCTIONS: Call your local emergency number (911 in the ) if: You have trouble breathing, and your lips look purple or blue. You have a seizure. Call your doctor if: You are dizzy, or you are urinating less or not at all. You have a headache with a stiff neck, and you feel tired or confused. You have new pain or pressure in your chest. Your symptoms, such as shortness of breath, vomiting, or diarrhea, get worse. Your symptoms, such as fever and coughing, seem to get better, but then get worse. You have new muscle pain or weakness. You have questions or concerns about your condition or care. Medicines: You may need any of the following: Acetaminophen decreases pain and fever. It is available without a doctor's order. Ask how much to take and how often to take it. Follow directions. Read the labels of all other medicines you are using to see if they also contain acetaminophen, or ask your doctor or pharmacist. Acetaminophen can cause liver damage if not taken correctly. Do not use more than 4 grams (4,000 milligrams) total of acetaminophen in one day. NSAIDs , such as ibuprofen, help decrease swelling, pain, and fever. This medicine is available with or without a doctor's order. NSAIDs can cause stomach bleeding or kidney problems in certain people. If you take blood thinner medicine, always ask your healthcare provider if NSAIDs are safe for you. Always read the medicine label and follow directions. Rest as much as you can to help you recover. Patient Language: Afghan Prescriptions: New benzonatate 200 mg capsule 200 mg PO TID PRN (Reason: cough) 10 Days Qty: 30 0RF No Action quercetin 500 mg capsule 500 mg PO DAILY multivitamin Tablet 1 tablet PO DAILY valacyclovir [Valtrex] 1 gram tablet 2,000 mg PO Q12H Qty: 32 2RF Rx Instructions: take 2 tabs q 12 hours for 2 days per episode of HSV, enough for terbinafine HCl 250 mg tablet 250 mg PO DAILY Qty: 90 0RF albuterol sulfate 90 mcg/actuation HFA aerosol inhaler 2 inh inhalation Q4H PRN (Reason: shortness of breath or wheezing) Qty: 8.5 0RF alprazolam [Xanax] 0.25 mg tablet 0.25 mg PO TID PRN (Reason: anxiety) Qty: 30 1RF lysine 1,000 mg Tablet 1,000 mg PO DAILY cholecalciferol (vitamin D3) [Vitamin D3] 125 mcg (5,000 unit) Tablet 125 mcg PO DAILY norethindrone ac-eth estradiol [Femhrt 05/20] 1-5 mg-mcg Tablet 1 tablet PO DAILY Fish Oil Capsule 1,000 mg PO DAILY CalMag Thins 200 mg calcium- 50 mg Tablet 1 tablet PO DAILY Follow-up/Referrals: Dashawn Tracy MD [Primary Care Provider] - Stand Alone Forms: Work/School Release IP Time of Disposition: 09:29
[2024-06-24 09:32] LABS: EDCOVIDSCREEN Negative (Negative); EDINFLUASCREEN Positive (Negative); EDINFLUBSCREEN Negative (Negative)
== END 2024-06-24 09:51 | disposition home or self-care (01) ==
PROVIDERS: Emergency Provider Nurse Practitioner Family; PCP Family Medicine
DX: J10.1 Influenza due to other identified influenza virus with other respiratory manifestations (principal); Z20.822 Contact with and (suspected) exposure to COVID-19; M85.80 Other specified disorders of bone density and structure, unspecified site
CPT/HCPCS: 87426; 87804; 99213; G0463

== ENCOUNTER 2024-09-10 15:08 | Outpatient (CLI) | payer OTHER, SELFPAY | END 2024-09-10 15:09 | disposition home or self-care (01) | LOC: GOSHIMG 15:08 | PROVIDERS: PCP Orthopaedic Surgery; Visit Provider Nurse Practitioner Family | DX: M25.561 Pain in right knee (principal) | CPT/HCPCS: 73562 ==